=== PATIENT | male | born 1950 | race Caucasian/White ===

== ENCOUNTER 2020-08-09 14:32 | Emergency (ER) | payer MEDICARE ==
[2020-08-09 16:13] LABS: HEMOGLOBIN 13.8 gm/dl (14.0-17.5); RED BLOOD COUNT 5.18 M/UL (4.20-5.50); WHITE BLOOD COUNT 8.3 K/UL (4.5-11.0)
[2020-08-09 16:38] LABS: BUN/CREATININE RATIO 37 (0-10)
[2020-08-09] MEDS ORDERED: LASIX40 MG PO (18:34)
== END 2020-08-09 18:55 | disposition home or self-care (01) ==
LOC: ER1 14:32
PROVIDERS: Emergency Medicine
DX: I11.0 Hypertensive heart disease with heart failure (principal); I50.9 Heart failure, unspecified; E11.9 Type 2 diabetes mellitus without complications
CPT/HCPCS: 71045; 80053; 81001; 82550; 82553; 83874; 83880; 84484; 85025; 93005; 96374; 99285; J1940

== ENCOUNTER → 2020-08-28 | Outpatient (CLI) | payer MEDICARE ==
[~2020-08-28] MED LIST: LASIX40 MG PO
== END ==
LOC: HEART CORB 10:30
DX: I42.8 Other cardiomyopathies (principal); I50.20 Unspecified systolic (congestive) heart failure; I08.8 Other rheumatic multiple valve diseases; I27.20 Pulmonary hypertension, unspecified; R93.1 Abnormal findings on diagnostic imaging of heart and coronary circulation
CPT/HCPCS: 93306

== ENCOUNTER 2021-09-05 11:39 | Emergency (ER) | payer MEDICARE, MEDICAID ==
[2021-09-05 13:03] LABS: HEMOGLOBIN 13.7 gm/dl (14.0-17.5); RED BLOOD COUNT 5.25 M/UL (4.20-5.50); WHITE BLOOD COUNT 7.5 K/UL (4.5-11.0)
[2021-09-05 13:26] LABS: BUN/CREATININE RATIO 29 (0-10)
[2021-09-05] MEDS ORDERED: LASIX40 MG PO (14:05)
[2021-09-10] MEDS ORDERED: DIGOX125 MCG PO (00:03)
[2021-09-10] MEDS ORDERED: ALDACTONE 25MG25 MG PO (00:04)
[2021-09-10] MEDS ORDERED: COREG 12.5MG12.5 MG PO (00:08)
[2021-09-10] MEDS ORDERED: LASIX40 MG PO (00:09)
[2021-09-10] MEDS ORDERED: ENTRESTO 24 MG1 EACH PO (00:10)
[2021-09-10] MEDS ORDERED: CHILDREN'S ASPI81 MG PO (00:11)
[2021-09-10] MEDS ORDERED: GLIPIZIDE10 MG PO (00:12)
[2021-09-10] MEDS ORDERED: METFORMIN HCL1000 MG PO (00:12)
== END 2021-09-05 14:30 | disposition home or self-care (01) ==
LOC: ER1 11:39
PROVIDERS: Nurse Practitioner
DX: I11.0 Hypertensive heart disease with heart failure (principal); I50.9 Heart failure, unspecified; E11.9 Type 2 diabetes mellitus without complications; Z79.82 Long term (current) use of aspirin; Z79.899 Other long term (current) drug therapy
CPT/HCPCS: 71045; 80053; 81001; 82550; 82553; 83880; 84484; 85025; 93005; 96374; 99285; J1940